=== PATIENT | male | born 1985 | race American Indian/Alaskan Native ===

== ENCOUNTER 2016-09-05 20:07 | Emergency (ER) | payer OTHER ==
[2016-09-05 21:09] VITALS: BP 129/77
== END 2016-09-05 23:00 | disposition left against medical advice (07) ==
LOC: ED 20:07
DX: R51 Headache (principal); H92.03 Otalgia, bilateral; Z53.21 Procedure and treatment not carried out due to patient leaving prior to being seen by health care provider